=== PATIENT | female | born 1990 | race Caucasian/White ===

== ENCOUNTER 2020-10-23 08:46 | Outpatient (CLI) | payer BC, SELFPAY | END 2020-10-23 08:47 | disposition home or self-care (01) | LOC: ANHCOVIDVC 08:46 | PROVIDERS: PCP Family Medicine | DX: Z23 Encounter for immunization (principal) | CPT/HCPCS: 0001A; 91300 ==

== ENCOUNTER 2020-11-13 08:42 | Outpatient (CLI) | payer BC, SELFPAY | END 2020-11-13 08:43 | disposition home or self-care (01) | LOC: ANHCOVIDVC 08:42 | PROVIDERS: PCP Family Medicine | DX: Z23 Encounter for immunization (principal) | CPT/HCPCS: 0002A; 91300 ==

== ENCOUNTER 2022-03-29 19:05 | Emergency (ER) | payer OTHER, SELFPAY ==
--- NOTE | ~2022-03-29 | CT_ITS ---
EXAMINATION: CT abdomen pelvis wo con DATE: 03/29/2022 22:11 INDICATION: Right flank pain, history of polycystic ovarian syndrome TECHNIQUE: Computed tomography (CT) of the abdomen and pelvis was performed without intravenous contr ast. The dose-length product (DLP) was 1418.72 mGy-cm. Automated exposure control and iterative recon struction technique were employed. COMPARISON: None FINDINGS: The lung bases are clear. The heart size is normal. There are surgical changes in the stoma ch. The liver, spleen, pancreas, gallbladder, and adrenal glands are normal. The kidneys are unremark able. No stones are identified in the kidneys, ureters, or bladder. There is no hydronephrosis or hyd roureter. No pathologically enlarged abdominal or pelvic lymph nodes are identified. There is no free intraperitoneal gas or evidence of bowel obstruction. The appendix is normal. There is an 8.2 x 6.5 cm cyst of the midline pelvis abutting the anterior body of the uterus. There is a 3.3 cm cyst of the right adnexa. IMPRESSION: 1. 8.2 cm cyst of the midline pelvis abutting the uterus which may be adnexal versus arising from the uterus. Further evaluation with pelvic ultrasound is recommended. Reviewed, dictated and finalized at location B. IMPRESSION: 1. 8.2 cm cyst of the midline pelvis abutting the uterus which may be adnexal v ersus arising from the uterus. Further evaluation with pelvic ultrasound is rec ommended.
[2022-03-29 19:16] VITALS: BP 142/99; PULSE 91; RESP 18; TEMP 36.6; O2SAT 100
[2022-03-29 19:31] LABS: Basophils Percent Auto 0.3 % (0.2-1.2); Eosinophils Absolute Auto 0.1 K/mm3 (0-0.3); Hematocrit 36.5 % (37.0-47.0); Hemoglobin 11.9 g/dL (12.0-15.0); Immature Granulocyte Absolute 0.02 K/mm3 (0.00-0.031); Immature Granulocyte Percent A 0.2 % (0-0.5); Lymphocytes Absolute Auto 2.25 K/mm3 (0.9-3.2); Lymphocytes Percent Auto 23.1 % (18.3-44.2); Mean Corpuscular HGB Conc 32.6 g/dl (32-36); Mean Corpuscular Hemoglobin 27.9 pg (26-34); Mean Corpuscular Volume 85.7 fl (80-100); Mean Platelet Volume 9.5 fl (7.4-10.4); Monocytes Absolute Auto 0.8 K/mm3 (0.1-0.6); Monocytes Percent Auto 8.1 % (2.6-8.5); Neutrophils Absolute Auto 6.6 K/mm3 (1.3-6.7); Neutrophils Percent Auto 67.3 % (45.5-73.1); Platelet Count Result 302 k/mm3 (150-375); Red Blood Count 4.26 M/mm3 (4.2-5.4); Red Cell Distribution Width 13.5 % (11.5-14.5); White Blood Count 9.8 K/mm3 (4.5-10.0)
[2022-03-29 19:44] LABS: Alanine Aminotransferase 19 U/L (6-35); Albumin Level 4.3 g/dL (3.5-5.1); Alkaline Phosphatase 71 U/L (38-126); Anion Gap 11 mmol/L (8-16); Aspartate Amino Transferase 24 U/L (14-36); Bilirubin,Total 0.2 mg/dL (0.2-1.3); Blood Urea Nitrogen 16 mg/dL (7-17); Calcium 9.4 mg/dL (8.4-10.2); Carbon Dioxide 26 mmol/L (22-30); Chloride 101 mmol/L (98-107); Estimated CRCL calculation 91 ml/min; Estimated Glomerular Filt Rate > 60; Glucose 91 mg/dL (65-110); Potassium 4.5 mmol/L (3.4-5.0); Sodium 138 mmol/L (137-145)
--- NOTE | 2022-03-29 20:05 | PC.NURSE ---
Pt refuses pain medication. States it's not so bad it needs morphine. Pt refused zofran and reported she is not nauseated
[2022-03-29 20:30] VITALS: BP 136/76; PULSE 76; RESP 16; TEMP 36.8; O2SAT 98
[2022-03-29 20:42] LABS: Lipase 52 U/L (23-300)
--- NOTE | 2022-03-29 20:46 | ED.GENADULT ---
HPI - General Adult General Chief complaint: Back Pain/Injury Stated complaint: R flank pain Time Seen by Provider: 03/29/22 19:36 Source: patient and RN notes reviewed Mode of arrival: ambulatory Limitations: no limitations History of Present Illness HPI narrative: This is a 31 year old female who presents for evaluation of right flank pain. She has been having right flank pain that is waxing and waning since last night. She reports at one time she had pain that radiated across upper abdomen. She has taken Tylenol for her pain. Her pain is worse with movement and laying on her side. She denies associated nausea, vomiting, fever, chills, hematuria or dysuria. Her pain is 3/10 at this time at rest. Related Data Home Medications Medication Instructions Recorded Confirmed multivitamin 1 tablet PO DAILY 07/27/19 01/15/21 Allergies Allergy/AdvReac Type Severity Reaction Status Date / Time No Known Allergies Allergy Unknown Verified 03/03/22 08:02 Review of Systems Review of Systems: All systems reviewed & are unremarkable except as noted in HPI and below Constitutional: Constitutional: Denies chills, Denies fatigue and Denies fever(s) Cardiovascular: Cardiovascular: Denies chest pain and Denies rapid heart rate Respiratory: Respiratory: Denies chest congestion, Denies cough and Denies dyspnea Gastrointestinal: Gastrointestinal: Reports abdominal pain, Denies nausea and Denies vomiting Genitourinary: Genitourinary: Denies hematuria, Denies nocturia, Denies dysuria and Reports flank pain Musculoskeletal: Musculoskeletal: Reports back pain PMFSH Past Medical History Medical History Body mass index (BMI) 35 or more (03/17/18) Essential (primary) hypertension Hyperlipidemia Lumbar sprain Metabolic syndrome PCOS (polycystic ovarian syndrome) Psychogenic overeating Surgical History Surgical History H/O gastric bypass 2018 Family History Family History Father Patient's father is in good health Mother Carcinoma of colon, Onset Age: 56 Grandparent Cerebrovascular accident Family history of hearing loss Diabetes mellitus Family history of suicide, Onset Age: 60 Social History Social History (Reviewed 03/03/22 @ 08:04 by CAIO Lala Smoking status: Never smoker Second hand tobacco smoke exposure: No Alcohol intake: current Alcohol use details: ocassional Substance use: never Exam Const: General: no acute distress Nutritional Appearance: obese Orientation/consciousness: patient oriented x3 Limitations: no limitations HENMT: Head: normal to inspection Eyes: EOM: EOMs intact bilaterally Resp: Effort & Inspection: normal respiratory effort Auscultation: clear to auscultation bilaterally Cardio: Rate: regular rate Rhythm: regular rhythm Heart sounds: no murmurs GI: GI Palp: Yes Soft to palpation, No Tenderness to palpation present (GI) and No Guarding due to palpation present (GI) Auscultation: normal bowel sounds Skin: General skin exam: normal color Rashes: no rashes Wounds: no wounds Neuro: General: patient oriented x3, moves all extremities and CN's II-XI intact bilaterally Cranial nerves: Yes Nystagmus not present Speech: normal speech Gait exam (Neuro): Normal gait present Extrem: General: normal to inspection Psych: Mental Status: mental status grossly normal Affect: normal affect Attitude: cooperative Course Reevaluation(s) Reevaluation #1: Patient declined pain medication. She reports her pain is much better. I have discussed with patient CT results showing she is likely ovarian cyst. PAtient is having minimal pain so unlikely torsion. I did discussed return precautions and signs of torsion. 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
[2022-03-29 21:02] LABS: D Dimer < 0.27 ug/mL (<0.48)
[2022-03-29 21:30] VITALS: BP 131/54; PULSE 70; RESP 16; TEMP 36.3; O2SAT 100
[2022-03-29 21:47] LABS: Appearance Urine Clear (Clear); Bilirubin Urine Negative (Negative); Blood Urine 2+ (Negative); Color Urine Yellow (Yellow); Glucose Urine UA Negative (Negative); Ketones Urine Trace mg/dL (Negative); Leukocyte Esterase Ur 2+ LEU/UL (Negative); Nitrate Urine Negative (Negative); Protein Urine Negative (Negative); Specific Grav Ur >= 1.030 (1.001-1.035); Urobilinogen Urine 0.2 mg/dL (<2.0); pH Urine 5.5 (5.0-9.0)
[2022-03-29 21:51] LABS: Bacteria Urine 1+ /hpf; Mucus Urine Few /lpf; Squamous Epithelial Cell Urine Few /hpf (Few)
[2022-03-29 21:52] LABS: Add Urine Microscopic? YES
[2022-03-29 22:34] VITALS: BP 125/70; PULSE 68; RESP 16; TEMP 36.4; O2SAT 100
[2022-03-29 23:18] VITALS: TEMP 36.6
== END 2022-03-29 23:19 | disposition home or self-care (01) ==
PROVIDERS: Emergency Medicine; Emergency Provider General Practice; PCP Family Medicine
DX: N83.201 Unspecified ovarian cyst, right side (principal); R10.9 Unspecified abdominal pain; I10 Essential (primary) hypertension; E78.5 Hyperlipidemia, unspecified
CPT/HCPCS: 36415; 74176; 80053; 81001; 81025; 83690; 85025; 85380; 87086; 87088; 99284

== ENCOUNTER 2022-06-03 00:22 | Day surgery (SDC) | payer OTHER, SELFPAY ==
[2022-05-27 09:06] VITALS: BMI 40.7
--- NOTE | 2022-05-27 09:13 | SUR.PREOP ---
Report to the Outpatient Waiting Room, entrance under the green pavilion located off [facility], at time _0630_ on date 06/03/22. Planned Procedure Time: _0830_. Time changes happen often and if your time is changed the preop area will call you the afternoon before. - You and your visitor will be asked to self-screen and do not enter if you have any COVID symptoms. - We encourage only one visitor and NO visitors under age 16 are allowed at this time. Your visitor will receive communication by the phone number that is given day of service. - The patient visitor is requested to social distance or may leave the building when not with patient due to restrictions. - A mask is required within the hospital. Patients may have clear liquids (water, carbonated beverages, clear teas, apple juice) until 3 hours prior to surgery with a maximum of 20 ounces. - No food from midnight until time of surgery - Infants may have breast milk until 4 hours before surgery, formula 6 hours prior to surgery. - Children will be allowed to drink immediately following surgery. If applicable, please bring a bottle or sippy cup to assist with drinking. Juice, water, soda, and popsicles are readily available. For infants on formula, please bring formula the day of surgery. Pacifiers are allowed. Take the following medications with a SIP of water the morning of surgery: N/A Medications to discontinue per physician HOLD VITAMINS AND SUPPLEMENTS FOR 3 DAYS PRIOR TO PROCEDURE_ Date to take last dose Please no make-up, nail welsh, hairspray, perfume, deodorant, or body powder the day of surgery. No jewelry (including any body piercings) or valuables the day of surgery, leave them at home. Please take a shower or bath the night before, or the morning of, surgery with an antibacterial soap. Wear comfortable, loose fitting clothing. Children are encouraged to wear pajamas. - Jewelry must be removed prior to entering the operating room. Rings and piercings that are not removed may be cut off. - The hospital will not accept responsibility for valuables. - Please leave all valuables, including medications, at home the day of surgery. If you are going home after surgery, a licensed powder truck driver must drive you home. - NO public transportation without another adult. - We recommend that an adult stay with you for 24 hours following discharge. - We also recommend that you do not drive, make important decision, drink alcoholic beverages, or take any drugs that were not prescribed by your health care provider for at least 24 hours after your discharge time. For Pediatric surgeries, we recommend two adults accompany the child home. Follow any additional instructions given to you from your surgeon. If you or anyone in your household have experienced Covid symptoms in the past week, please notify your surgeon or the nurse liaison at the phone number below for possible testing. Telephone instructions given to __PATIENT___and asked if any additional questions and then verbalized understanding. Patient advised to call surgeon office or pre surgery nurse liaison [phone] if any additional questions.
[2022-06-03] VITALS (8 sets, daily range): BP systolic 119–141; BP diastolic 73–94; PULSE 57–76; RESP 12–16; TEMP 36.2–36.6; O2SAT 96–100
[2022-06-03] MEDS: ACETAMINOPHEN 500 MG TABLET 1000 MG PO (06:41)
[2022-06-03] MEDS: LACTATED RINGERS 1,000 ML 30 ML IV CONT ×2 (07:21→10:15)
--- NOTE | 2022-06-03 07:23 | P.PNAN_ITS ---
Anes - Initial Pre Proc Eval Procedure: Operation Date: 06/03/22 08:30 Proposed Procedures p Laparoscopic Bilateral Salpingectomy, Left Oophorectomy - Aylin Singh MD Date/Time: 06/03/22 07:23 Surgeon: Aylin Singh MD Pre Op Diagnosis: ovarian cysts Patient Data Age: 31 Gender: F Height: 1.6 m Weight: 105 kg Last Vital Signs Temp 36.6 C 06/03/22 07:18 Pulse 76 06/03/22 07:18 Resp 16 06/03/22 07:18 BP 119/73 06/03/22 07:18 Pulse Ox 97 06/03/22 07:18 O2 Del Method Room Air 06/03/22 07:18 Allergies Allergy/AdvReac Type Severity Reaction Status Date / Time No Known Allergies Allergy Unknown Verified 06/03/22 06:40 Home Medications Medication Instructions Recorded Confirmed Type multivitamin 1 tablet PO DAILY 07/27/19 06/03/22 History Patient hx anesthesia problems: none Family hx anesthesia problems: none Results Review: All pre-operative results and documents have been reviewed as part of the pre- operative evaluation. FORMERLY [facility] Past Medical History Medical History Body mass index (BMI) 35 or more (03/17/18) Essential (primary) hypertension Hyperlipidemia Lumbar sprain Metabolic syndrome PCOS (polycystic ovarian syndrome) Psychogenic overeating Surgical History Surgical History H/O gastric bypass 2018 Family History Family History Father Patient's father is in good health Mother Carcinoma of colon, Onset Age: 56 Grandparent Cerebrovascular accident Family history of hearing loss Diabetes mellitus Family history of suicide, Onset Age: 60 Social History Social History Smoking status: Never smoker Second hand tobacco smoke exposure: No Alcohol intake: current Alcohol use details: ocassional Substance use: never Living arrangements: alone Anes - Eval Final PreProcedure Day of Procedure 06/03/22 07:23 Patient weight: morbidly obese Heart: regular rate and rhythm Lungs: clear to auscultation Airway: Mallampati scale class II Neurological: alert and oriented Last oral intake: >/= 8 hours ASA classification: III Emergent: no Anesthetic plan: proceed Anesthesia type and monitoring: general ETT and standard monitoring Results Review: All pre-operative results and documents have been reviewed as part of the pre- operative evaluation. Informed Consent: The patient's anesthetic plan and its attendant risks and benefits were discussed with the patient/family/POA. Questions were solicited and answers provided to the satisfaction of the patient/family/POA.
--- NOTE | 2022-06-03 07:26 | WPDHPUPDATE1 ---
History and Physical Update Update Date/Time: 06/03/22 07:26 History and Physical has been reviewed, including an updated exam of the patient. There are NO changes in the patient's condition. Risks, benefits, and alternatives have been discussed and questions answered. Patient agrees to proceed with procedure.
--- NOTE | 2022-06-03 07:27 | PM.IMHP ---
H&P: HPI History of Present Illness Date/Time: 06/03/22 07:27 Chief Complaint: Pelvic pain, ovarian cyst Narrative: this patient is a 31-year-old female with pelvic pain and a large ovarian cyst. We have agreed to remove the ovary and the fallopian tube. Patient understands the procedure. We talked about it in detail. She understands that there is significant risk. She understands that injuries may occur that result in hospitalization, more surgery, and severe illness. She understands there is risk of hemorrhage and infection. Review of Systems Review of Systems: All systems reviewed & are unremarkable except as noted in HPI and below Constitutional: Constitutional: Denies chills, Denies fatigue, Denies fever(s) and Denies weakness Eyes: Eyes: Denies blurry vision, Denies change in vision, Denies loss of peripheral vision, Denies loss of vision, Denies other visual disturbances and Denies eye pain ENT: Denies vertigo, Denies dizziness, Denies hearing loss, Denies mouth pain, Denies nasal obstruction, Denies neck mass and Denies neck pain Cardiovascular: Cardiovascular: Denies chest pain, Denies diaphoresis, Denies syncope, Denies leg edema and Denies dyspnea Respiratory: Respiratory: Denies chest congestion, Denies cough, Denies hemoptysis, Denies dyspnea and Denies wheezing Gastrointestinal: Gastrointestinal: Denies abdominal pain, Denies constipation, Denies diarrhea, Denies nausea and Denies vomiting Genitourinary: Genitourinary: Denies hematuria, Denies change in libido, Denies nocturia, Denies genital lesions, Denies flank pain and Denies urinary urgency Musculoskeletal: Musculoskeletal: Denies abnormal gait, Denies back pain, Denies myalgias, Denies arthralgias, Denies joint swelling, Denies muscle weakness and Denies neck pain Integumentary/Breasts: Skin/Breast: Denies swelling, Denies breast pain, Denies breast mass, Denies dry skin, Denies nipple discharge, Denies unusual bruising and Denies jaundice Neurologic: Denies Neuro-related abnormal movements, Denies Abnormal speech present, Denies abnormal gait, Denies behavioral changes, Denies confusion, Denies vertigo, Denies dizziness, Denies syncope, Denies loss of vision, Denies memory loss, Denies convulsions and Denies weakness Psychiatric: Psychiatric: Denies abnormal sleep pattern, Denies behavioral changes, Denies change in libido, Denies confusion, Denies depression, Denies anhedonia and Denies memory loss Endocrine: Endocrine: Reports no additional endocrine complaints, Denies change in libido and Denies fatigue Hematologic/Lymphatic: Hematologic/Lymphatic: Reports no additional hematologic/lymphatic complaints Allergic/Immunologic: Allergic/Immunologic: Reports no additional allergic/immunologic complaints and Denies wheezing PMFSH Past Medical History Medical History Body mass index (BMI) 35 or more (03/17/18) Essential (primary) hypertension Hyperlipidemia Lumbar sprain Metabolic syndrome PCOS (polycystic ovarian syndrome) Psychogenic overeating Surgical History Surgical History H/O gastric bypass 2017 Family History Family History Father Patient's father is in good health Mother Carcinoma of colon, Onset Age: 56 Grandparent Cerebrovascular accident Family history of hearing loss Diabetes mellitus Family history of suicide, Onset Age: 60 Social History Social History Smoking status: Never smoker Second hand tobacco smoke exposure: No Alcohol intake: current Alcohol use details: ocassional Substance use: never Living arrangements: alone Meds Home Medications and Allergies Home Medications Medication Instructions Recorded Confirmed Type multivitamin 1 tablet PO DAILY 07/27/19 06/03/22 His
[2022-06-03] MEDS: fentaNYL CITRATE INJ (*CRX) 100 MCG/2 ML VIAL 25 MCG IV PUSH ×4 (10:15→10:29)
[2022-06-03] MEDS: oxyCODONE HCL (*CRX) 5 MG TAB IR PO (10:57)
--- NOTE | 2022-06-07 20:12 | P.OP_ITS ---
Procedure Note - Detailed Date of Procedure 06/07/22 Pre-op Diagnosis ovarian cyst Post-op Diagnosis Same ( possible ovarian tumor) Procedure Performed Diagnostic laparoscopy Surgeon Aylin Singh MD Anesthesia General Indications Pelvic pain Findings large left ovarian cyst that is worrisome in appearance. Vascularity, adhesions, color changes, possible multiple tissue types. Description of Procedure The patient was taken to the operating room. She was prepped and draped in the dorsal lithotomy position after induction general anesthesia. A 5 mm incision was made with a scalpel on the abdominal skin in the left upper quadrant of the abdomen. A 5 mm trocar was inserted into the intra-abdominal cavity under direct visualization the scope. In the same fashion a 5 mm left lower quadrant trocar was inserted and a 5 mm infraumbilical trocar was inserted. The ovarian cyst was examined the above findings were noted with suspicious appearance for borderline tumor. Decided to terminate the procedure and sent to Gynecology Oncology appear The pelvis was irrigated. The pneumoperitoneum was reduced. The trocars were removed. Skin was closed with subcuticular 4 micro. The patient's incisions w ere covered with Dermabond. She was taken recovery room in stable condition. Sponge lap and needle counts were correct x2. Estimated Blood Loss -5.0 Urine Output -125.0 Pathology None sent Complications No immediate complications Condition Stable Disposition Same day
--- NOTE | 2022-06-10 19:49 | W.PM.PROC2 ---
Procedure Note - Detailed Date of Procedure 06/10/22 Pre-op Diagnosis ovarian cysts Post-op Diagnosis Same Procedure Performed Laparoscopic bilateral salpingectomy and left oophorectomy. Surgeon Aylin Singh MD Anesthesia General Indications Pelvic pain Findings Enlarged/Cystic left ovary. , normal pelvis otherwise. Normal uterus and tubes. Description of Procedure The patient was taken to the operating room. She was prepped and draped in the dorsal lithotomy position after induction general anesthesia. A 5 mm incision was made with a scalpel on the abdominal skin in the left upper quadrant of the abdomen. A 5 mm trocar was inserted into the intra-abdominal cavity under direct visualization the scope. In the same fashion a 11 mm left lower quadrant trocar was inserted and a 11 mm infraumbilical trocar was inserted. left salpingo-oophorectomy was performed. The infundibulopelvic ligament was isolated and cauterized. The ureter was identified prior to that. The para ovarian tissue was cauterized transected with LigaSure cautery. The mesosalpinx adjacent to the fallopian tube was cauterized transected with LigaSure cautery in a stepwise fashion around to the fundus of the uterus on the left side. The fallopian tube was transected at the uterus. It was placed in endobag, the ovary and tube. The ovary and tube was taken at the left lower quadrant trocar site. The right fallopian tube was removed. The mesosalpinx adjacent to the tube was cauterized in separate fashion around to the uterine cornua. The fallopian tube was transected at the cornua, cauterized also. Fallopian tube was taken out the left lower quadrant trocar. The pelvis was irrigated. The pneumoperitoneum was reduced. The trocars were removed. Skin was closed with subcuticular 4 micro. The patient's incisions were covered with Dermabond. She was taken recovery room in stable condition. Sponge lap and needle counts were correct x2. Estimated Blood Loss -5.0 Urine Output -125.0 Complications No immediate complications Condition Stable Disposition Same day
== END 2022-06-03 11:57 | disposition home or self-care (01) ==
PROVIDERS: PCP Family Medicine; Visit Provider Obstetrics & Gynecology
PROC: (CPT 49320; principal; 2022-06-03 08:30)
DX: D27.1 Benign neoplasm of left ovary (principal); Z98.84 Bariatric surgery status; E66.01 Morbid (severe) obesity due to excess calories; Z68.41 Body mass index [BMI] 40.0-44.9, adult
CPT/HCPCS: 58661; 88302; A9270; J1100; J1170; J1885; J2250; J2405; J2704; J2710; J3010; J7030; J7120